=== PATIENT | female | born 1995 | race African-American/Black ===

== ENCOUNTER 2018-10-05 12:05 | Emergency (ER) | payer OTHER ==
[~2018-10-05] VITALS: Ht 149.9 cm; Wt 42.6 kg
[2018-10-05] MEDS ORDERED: MEDROLDOSEPACK PO (14:15)
[2018-10-05] MEDS ORDERED: MOBIC15 MG PO (14:15)
[2018-10-05 14:21] VITALS: BP 118/73
== END 2018-10-05 14:22 | disposition home or self-care (01) ==
LOC: M.ERS 12:05
DX: S43.422A Sprain of left rotator cuff capsule, initial encounter (principal); Z91.018 Allergy to other foods; X50.9XXA Other and unspecified overexertion or strenuous movements or postures, initial encounter; Y93.89 Activity, other specified; Y92.89 Other specified places as the place of occurrence of the external cause; Y99.0 Civilian activity done for income or pay

== ENCOUNTER 2020-08-13 00:03 | Emergency (ER) | payer OTHER ==
[~2020-08-13] VITALS: Ht 152.4 cm; Wt 43.1 kg
[~2020-08-13 00:03] MED LIST: MEDROLDOSEPACK PO; MOBIC15 MG PO
[2020-08-13] MEDS ORDERED: ACETAMINOPHEN-1 EAC2 PO (00:42)
[2020-08-13] MEDS ORDERED: NAPROSYN500 MG PO (00:42)
[2020-08-13] MEDS ORDERED: PENICILLIN VK500 MG PO (00:42)
[2020-08-13 00:50] VITALS: BP 102/43
== END 2020-08-13 00:50 | disposition home or self-care (01) ==
LOC: M.ERS 00:03
DX: K05.6 Periodontal disease, unspecified (principal); K02.9 Dental caries, unspecified; Z91.018 Allergy to other foods

== ENCOUNTER 2021-06-27 09:12 | Emergency (ER) | payer OTHER ==
[~2021-06-27] VITALS: Ht 149.9 cm; Wt 43.5 kg
[~2021-06-27 09:12] MED LIST changes: +ACETAMINOPHEN-1 EAC2 PO; +NAPROSYN500 MG PO; +PENICILLIN VK500 MG PO
[2021-06-27] MEDS ORDERED: CEPHALEXIN500 MG PO (09:42)
[2021-06-27] MEDS ORDERED: BACTRIM DS TAB1 EACH PO (09:42)
[2021-06-27] MEDS ORDERED: HYDROCODON-ACE1 EAC7 PO (09:42)
[2021-06-27 09:47] VITALS: BP 124/67
== END 2021-06-27 09:47 | disposition home or self-care (01) ==
LOC: M.ERS 09:12
DX: L08.9 Local infection of the skin and subcutaneous tissue, unspecified (principal); S60.412A Abrasion of right middle finger, initial encounter; Z91.018 Allergy to other foods; X58.XXXA Exposure to other specified factors, initial encounter; Y93.89 Activity, other specified; Y92.89 Other specified places as the place of occurrence of the external cause; Y99.8 Other external cause status